=== PATIENT | male | born 1970 | race Two or more races ===

== ENCOUNTER → 2020-05-17 | Outpatient (CLI) | payer OTHER | END | disposition home or self-care (01) | LOC: CFH 10:40 | PROVIDERS: ATTEND Internal Medicine | DX: R41.3 Other amnesia (principal); R35.0 Frequency of micturition | CPT/HCPCS: 70450 ==

== ENCOUNTER 2020-10-23 13:12 | Outpatient (CLI) | payer OTHER | END 2020-10-23 23:59 | disposition home or self-care (01) | LOC: CARD 13:12 | PROVIDERS: ATTEND Nurse Practitioner Family | DX: R41.3 Other amnesia (principal) | CPT/HCPCS: 95819 ==

== ENCOUNTER 2021-02-13 13:53 | Emergency (ER) | payer OTHER ==
[~2021-02-13] VITALS: Ht 177.8 cm; Wt 100.2 kg
--- NOTE | 2021-02-13 14:25 | NUR ---
PT HERE WITH C/O ABD PAIN AND BRIGHT RED BLOOD IN STOOL X2 DAYS. PLACED ON VITALS MONITORS. CALL LIGHT WITHIN REACH, SPOUSE AT BEDSIDE.
[2021-02-13] MEDS ORDERED: ONDANSETRON 2MG/ML, 2ML IVPush ONE (14:30)
[2021-02-13] MEDS ORDERED: SODIUM CHLORIDE 0.9% 1,000ML IVBOLUS ONE (14:30)
[2021-02-13] MEDS ORDERED: SODIUM CHLORIDE FLUSH 10ML SYR IVF ONE (14:30)
[2021-02-13] MEDS ORDERED: MORPHINE SULFATE 4 MG/ML, 1ML IVPush PRN (14:30)
[2021-02-13] MEDS ORDERED: MORPHINE SULFATE 4 MG/ML, 1ML ONE (14:37)
[2021-02-13] MEDS ORDERED: ONDANSETRON 2MG/ML, 2ML ONE (14:37)
[2021-02-13] MEDS ORDERED: METO50TA82 PO (15:09)
[2021-02-13] MEDS ORDERED: ASPI-963 PO (15:09)
[2021-02-13] MEDS ORDERED: LOSA25TA25 PO (15:09)
[2021-02-13] MEDS ORDERED: METF1000 PO (15:09)
[2021-02-13] MEDS ORDERED: TESTOSTERONE (15:09)
[2021-02-13] MEDS ORDERED: HYDR25TA6 PO (15:09)
[2021-02-13] MEDS ORDERED: ATOR10TA9 PO (15:09)
[2021-02-13 15:14] LABS: ALBUMIN 4.2 g/dL (3.4-5.0); ANION GAP 4 mmol/L (5-15); CALCIUM 9.4 mg/dL (8.5-10.1); CHLORIDE 102 mmol/L (98-107); CREATININE 0.87 mg/dL (0.7-1.3)
[2021-02-13 15:16] LABS: BASOPHILS % (AUTO) 1 % (0-1); EOSINOPHILS % (AUTO) 0 % (1-7); LYMPHOCYTES % (AUTO) 16 % (22-44); MEAN CORPUSCULAR HEMOGLOBIN 31.5 pg (27.5-34.5); MEAN PLATELET VOLUME 7.5 fL (7.4-10.4); MONOCYTES % (AUTO) 10 % (2-9); NEUTROPHILS % (AUTO) 73 % (42-75); PLATELET COUNT 254 x10^3/uL (130-400); RED BLOOD COUNT 4.74 x10^6/uL (4.38-5.82); RED CELL DISTRIBUTION WIDTH 13.2 % (9.4-14.8)
[2021-02-13] MEDS ORDERED: OMNIPAQUE 350 MG/ML, 100ML BOTTLE ONE (15:36)
[2021-02-13 15:39] LABS: MD NO
--- NOTE | 2021-02-13 15:56 | NUR ---
PT BACK FROM CT. VSS. URINE SAMPLE COLLECTED.
[2021-02-13 16:15] LABS: MICROSCOPIC NOT IND
[2021-02-13] MEDS ORDERED: CEFTRIAXONE PMX 1GM/50ML 50 ML ONE (17:06)
[2021-02-13 17:11] VITALS: BP 152/98
[2021-02-13] MEDS ORDERED: CEFTRIAXONE PMX 1GM/50ML 50 ML IV ONE (17:30)
== END 2021-02-13 17:32 | disposition home or self-care (01) ==
LOC: ED 17:18
DX: K57.32 Diverticulitis of large intestine without perforation or abscess without bleeding (principal); R10.32 Left lower quadrant pain
CPT/HCPCS: 36415; 74177; 80048; 81003; 82040; 85025; 96361; 96365; 96375; 99285; J0696; J2270; J2405; J7030; Q9967